=== PATIENT | male | born 1975 ===

== ENCOUNTER → 2020-07-10 14:19 | Outpatient (BNVA) | payer MEDICAID, SELFPAY | PROVIDERS: PCP Family Medicine; Referring Provider Family Medicine; Visit Provider Urology | DX: Z30.09 Encounter for other general counseling and advice on contraception (principal); F41.8 Other specified anxiety disorders | CPT/HCPCS: 99202 ==

== ENCOUNTER → 2020-08-23 11:01 | Outpatient (BNVA) | payer MEDICAID, SELFPAY | PROVIDERS: PCP Family Medicine; Visit Provider Urology | DX: Z30.2 Encounter for sterilization (principal) | CPT/HCPCS: 55250 ==

== ENCOUNTER 2024-06-20 13:46 | Outpatient (REF) | payer OTHER, SELFPAY ==
--- NOTE | ~2024-06-20 | XR_ITS ---
EXAMINATION: XR HAND, RIGHT CLINICAL INFORMATION: Right hand pain and swelling. COMPARISON: None available. TECHNIQUE: PA, lateral, and oblique views of the right hand. FINDINGS: Ulnar minus variance. Faint, irregular tiny ossific/calcific densities in the soft tissues along the medial aspect of the distal ulna, possibly related to trauma of indeterminate age versus chronic/degenerative process. Possible erosions at the distal aspects of the proximal phalanges, most notable in the fifth digit proximal phalange. Mild degenerative changes in the first carpometacarpal and metacarpophalangeal joints with joint space narrowing and hypertrophic change. XR/XR hand RT min 3V IMPRESSION: 1. Ulnar minus variance. Faint, irregular tiny ossific/calcific densities in the soft tissues along the medial aspect of the distal ulna, possibly related to trauma of indeterminate age versus chronic/degenerative process. 2. Possible erosions at the distal aspect of the proximal phalanges, most notable in the fifth digit proximal phalange. 3. Mild degenerative changes in the first carpometacarpal and metacarpophalangeal joints with joint space narrowing and hypertrophic change. This study was presented today, June 21, 2024, for interpretation. Stat results provided at this time as requested by referring provider. Electronically signed by: Litzy Huizar MD 06/21/2024 09:23 AM [facility]ACH[facility] SALVADOR
== END 2024-06-20 13:47 | disposition home or self-care (01) ==
LOC: HO.XRAY 13:46
PROVIDERS: PCP Student in an Organized Health Care Education/Training Program; Visit Provider Nurse Practitioner Family
DX: R60.0 Localized edema (principal)
CPT/HCPCS: 73130